=== PATIENT | male | born 1970 | race Caucasian/White ===

== ENCOUNTER 2021-06-18 04:54 | Emergency (ER) | payer OTHER ==
--- NOTE | 2021-06-18 05:32 | EDM.PDOC ---
ED HPI GENERAL MEDICAL PROBLEM - General Chief Complaint: ENT Problem Stated Complaint: PAIN IN THROAT Time Seen by Provider: 06/18/21 05:25 Source of Information: Reports: Patient - History of Present Illness INITIAL COMMENTS - FREE TEXT/NARRATIVE: Pt is here for a sore throat. He noted that he had a little cough that started wednesday, 3 days ago, that got worse up to yesterday. The cough is now much bet ter, but the sore throat started yesterday and is worse today. He was planning on coming into town for a COVID swab as he was so uncomfortable. No fevers, but he did have chills yesterday. A little runny nose, but no congestion. No shortness of breath or chest pain. He has not had the COVID vaccine. 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 He does wear a mask, but notes his clients sometimes do not. No known sick contacts or exposure to COVID. Onset: Gradual Duration: Day(s): (3) - Related Data Allergies Allergy/AdvReac Type Severity Reaction Status Date / Time No Known Allergies Allergy Verified 06/18/21 05:09 Home Meds: Home Meds Ibuprofen [Motrin] 400 mg PO BID PRN 06/18/21 [History] atenoloL [Atenolol] 50 mg PO DAILY 06/18/21 [History] lisinopriL [Lisinopril] 25 mg PO DAILY 06/18/21 [History] Social & Family History - Tobacco Use Tobacco Use Status *Q: Never Tobacco User - Caffeine Use Caffeine Use: Reports: Coffee - Alcohol Use Days Per Week of Alcohol Use: 7 Number of Drinks Per Day: 2 Total Drinks Per Week: 14 - Recreational Drug Use Recreational Drug Use: Yes Recreational Drug Type: Reports: Marijuana/Hashish ED ROS ENT - Review of Systems Review Of Systems: Comprehensive ROS is negative, except as noted in HPI. ED EXAM, ENT - Physical Exam Exam: See Below Exam Limited By: No Limitations General Appearance: Alert, WD/WN, No Apparent Distress Eye Exam: Bilateral Eye: Normal Inspection Ears: Normal External Exam, Normal Canal, Hearing Grossly Normal, Normal TMs Nose: Normal Inspection, No Blood Mouth/Throat: Pharyngeal Erythema, Throat Swelling, Tonsillar Exudates. No: Uvular Deviation Head: Atraumatic, Normocephalic Neck: Normal Inspection, Supple, Non-Tender. No: Lymphadenopathy (L), Lymphadenopathy (R) Respiratory/Chest: No Respiratory Distress, Lungs Clear, Normal Breath Sounds, No Accessory Muscle Use Cardiovascular: Normal Peripheral Pulses, Regular Rate, Rhythm, No Murmur GI/Abdominal: Soft, No Distention (Male) Exam: Deferred Rectal (Males) Exam: Deferred Back: Normal Inspection, Full Range of Motion Extremities: Normal Inspection, Normal Range of Motion, No Pedal Edema Neurological: Alert, Oriented, Normal Cognition, No Motor/Sensory Deficits Psychiatric: Normal Affect, Normal Mood Skin: Warm, Dry, Intact, Normal Color, No Rash Lymphatic: No Adenopathy Course - Vital Signs Last Recorded V/S: Last Vital Signs Temp 99.3 F 06/18/21 05:21 Pulse 88 06/18/21 05:30 Resp 18 06/18/21 05:30 BP 159/99 H 06/18/21 05:21 Pulse Ox 96 06/18/21 05:30 - Orders/Labs/Meds Labs: Laboratory Tests 06/18/21 Range/Units 05:21 SARS-CoV-2 RNA ([facility]) Positive H (NEGATIVE) Meds: Medications Discontinued Medications Generic Name Dose Route Start Last Admin Trade Name Freq PRN Reason Stop Dose Admin Amoxicillin 500 mg 06/18/21 05:35 06/18/21 05:42 Amoxicillin 500 Mg Cap PO 06/18/21 05:36 500 mg ONETIME ONE Administration Departure - Departure Time of Disposition: 06:12 Disposition: Home, Self-Care 01 Condition: Fair Clinical Impression: COVID-19 - Discharge Information *PRESCRIPTION DRUG MONITORING PROGRAM REVIEWED*: Not Applicable *COPY OF PRESCRIPTION DRUG MONITORING REPORT IN PATIENT LAURITA: Not Applicable Instructions: 10 Things You Can Do to Manage Your COVID-19 Symptoms at Home - [facility] (03/14/2021) Forms: ED Department Discharge Additional Instructions: Quarantine per current CDC and [place] state guidelines Symptomatic treatment with over the counter medications as needed Follow up with your primary care provider in 7-10 days Sepsis Event Note (ED) - Focused Exam Vital Signs: Vital Signs Temp Pulse Resp BP Pulse Ox 06/18/21 05:30 88 18 96 06/18/21 05:21 99.3 F 92 20 159/99 H 98
[2021-06-18] MEDS ORDERED: Amoxicillin 500 MG Cap PO ONE (05:35)
== END 2021-06-18 06:27 | disposition home or self-care (01) ==
LOC: DL.ED 04:54
DX: U07.1 COVID-19 (principal); Z79.899 Other long term (current) drug therapy
CPT/HCPCS: 99283; A9270-GY; U0002